=== PATIENT | female | born 1950 | race Caucasian/White ===

== ENCOUNTER → 2017-10-30 | Outpatient (CLI) | payer MEDICARE | END | disposition home or self-care (01) | LOC: CVU 14:56 | PROVIDERS: ATTEND Internal Medicine Cardiovascular Disease | DX: I08.1 Rheumatic disorders of both mitral and tricuspid valves (principal); I48.92 Unspecified atrial flutter; I10 Essential (primary) hypertension | CPT/HCPCS: 93306 ==

== ENCOUNTER → 2017-11-24 | Outpatient (CLI) | payer MEDICARE | END | disposition home or self-care (01) | LOC: CFH 10:07 | PROVIDERS: ATTEND Internal Medicine | DX: Z13.820 Encounter for screening for osteoporosis (principal); M85.89 Other specified disorders of bone density and structure, multiple sites | CPT/HCPCS: 77080 ==

== ENCOUNTER 2019-03-27 09:14 | Outpatient (CLI) | payer MEDICARE ==
[2019-03-27] MEDS ORDERED: OMEP-110 PO (09:44)
[2019-03-27] MEDS ORDERED: METO50TA82 PO (09:44)
[2019-03-27] MEDS ORDERED: MAGN400T9 PO (09:44)
[2019-03-27] MEDS ORDERED: CHOL200074 PO (09:44)
[2019-03-27 10:26] LABS: BASOPHILS # (AUTO) 0.03 x10^3/uL (0-0.1); BASOPHILS % (AUTO) 1 % (0-1); EOSINOPHILS # (AUTO) 0.11 x10^3/uL (0-0.4); EOSINOPHILS % (AUTO) 2 % (1-7); LYMPHOCYTES # (AUTO) 1.32 x10^3/uL (1-3.4); LYMPHOCYTES % (AUTO) 24 % (22-44); MD NO; MEAN CORPUSCULAR HEMOGLOBIN 32.2 pg (27.0-34.8); MEAN CORPUSCULAR HGB CONC 33.6 g/dL (32.4-35.8); MEAN PLATELET VOLUME 7.5 fL (7.4-10.4); MONOCYTES # (AUTO) 0.48 x10^3/uL (0.2-0.8); MONOCYTES % (AUTO) 9 % (2-9); NEUTROPHILS # (AUTO) 3.56 x10^3/uL (1.8-6.8); NEUTROPHILS % (AUTO) 65 % (42-75); PLATELET COUNT 256 x10^3/uL (130-400); RED BLOOD COUNT 4.42 x10^6/uL (3.82-5.3); RED CELL DISTRIBUTION WIDTH 12.8 % (9.6-15.2)
[2019-03-27 10:27] LABS: INTERNATIONAL NORMALIZED RATIO 0.96 (0.93-1.1); PROTHROMBIN TIME 10.1 Seconds (9.6-11.5)
[2019-03-27 10:29] LABS: ALANINE AMINOTRANSFERASE 23 U/L (12-78); ALBUMIN 3.9 g/dL (3.4-5.0); ANION GAP 6 mmol/L (5-15); CALCIUM 8.6 mg/dL (8.5-10.1); CHLORIDE 109 mmol/L (98-107); CREATININE 0.84 mg/dL (0.55-1.02)
[2019-03-27 10:31] LABS: ALKALINE PHOSPHATASE 106 U/L (45-117); BILIRUBIN,TOTAL 0.4 mg/dL (0.2-1.0); TOTAL PROTEIN 7.5 g/dL (6.4-8.2)
[2019-03-27 13:51] LABS: HEMOGLOBIN A1C 5.4 % (4.2-6.3)
== END 2019-03-27 23:59 | disposition home or self-care (01) ==
LOC: STAR 09:14
PROVIDERS: ATTEND Orthopaedic Surgery
DX: M16.12 Unilateral primary osteoarthritis, left hip (principal); M25.552 Pain in left hip; Z79.899 Other long term (current) drug therapy
CPT/HCPCS: 36415; 80053; 83036; 85025; 85610; 85730; 87081; 93005

== ENCOUNTER 2019-04-10 06:47 | Inpatient (IN) | payer MEDICARE, OTHER ==
[~2019-04-10] VITALS: Ht 160 cm; Wt 71.8 kg
[~2019-04-10 06:47] MED LIST: CHOL200074 PO; EPINEPHRINE 1 MG/ML, 1ML ONE; KETOROLAC 60 MG/2 ML ONE; MAGN400T9 PO; METO50TA82 PO; OMEP-110 PO; ROPIvacaine/PF 0.5%, 30 ML ONE; SODIUM CHLORIDE 0.9% 50 ML ONE; TRANEXAMIC ACID 100 MG/ML, 10ML ONE; VANCOMYCIN 1,000 MG ONE
[2019-04-10] MEDS ORDERED: LACTATED RINGERS 1,000 ML IV SCH (07:15)
[2019-04-10] MEDS ORDERED: LIDOCAINE-MPF 1%, 2ML INFIL ONE (07:30)
[2019-04-10] MEDS ORDERED: ACETAMINOPHEN 500 MG TABLET PO ONE (07:30)
[2019-04-10] MEDS ORDERED: GABAPENTIN 300 MG CAPSULE PO ONE (07:30)
[2019-04-10] MEDS ORDERED: FENTANYL PF 250 MCG/5ML ONE (07:45)
[2019-04-10] MEDS ORDERED: MIDAZOLAM 1 MG/ML, 2ML ONE (07:45)
[2019-04-10] MEDS ORDERED: NS + 20MEQ KCL 1,000 ML IV SCH (08:06)
[2019-04-10] MEDS ORDERED: SCOPOLAMINE PATCH, 1.5MG PATCH.TD72 TD ONE ×2 (08:07→08:30)
[2019-04-10] MEDS ORDERED: DIPHENHYDRAMINE 25 MG CAPSULE PO PRN (08:30)
[2019-04-10] MEDS ORDERED: ZOLPIDEM 5MG TABLET PO PRN (08:30)
[2019-04-10] MEDS ORDERED: OXYcodone IR 5MG TABLET PO PRN (08:30)
[2019-04-10] MEDS ORDERED: MAGNESIUM HYDROXIDE 8%, 30ML UDC PO PRN (08:30)
[2019-04-10] MEDS ORDERED: HYDROcodone/APAP 5/325 TABLET PO PRN (08:30)
[2019-04-10] MEDS ORDERED: ONDANSETRON 2MG/ML, 2ML IV PRN (08:30)
[2019-04-10] MEDS ORDERED: ONDANSETRON 4 MG TABLET PO PRN (08:30)
[2019-04-10] MEDS ORDERED: SENNA/DOCUSATE TABLET PO PRN (08:30)
[2019-04-10] MEDS ORDERED: BISACODYL 10 MG SUPP PR PRN (08:30)
[2019-04-10] MEDS ORDERED: PROPOFOL 50 ML ONE (08:48)
[2019-04-10] MEDS ORDERED: PROPOFOL 10 MG/ML, 20ML ONE (08:56)
[2019-04-10] MEDS ORDERED: ONDANSETRON 2MG/ML, 2ML ONE (08:56)
[2019-04-10] MEDS ORDERED: NEOSTIGMINE 1 MG/ML, 10ML ONE (08:56)
[2019-04-10] MEDS ORDERED: LIDOCAINE GEL 2%, 5ML ONE (08:56)
[2019-04-10] MEDS ORDERED: ROCURONIUM 10MG/ML,5ML ONE (08:56)
[2019-04-10] MEDS ORDERED: GLYCOPYRROLATE 0.2MG/1ML, 5ML ONE (08:56)
[2019-04-10] MEDS ORDERED: SUCCINYLCHOLINE 20 MG/ML, 10ML ONE (08:56)
[2019-04-10] MEDS ORDERED: DEXAMETHASONE 4 MG/ML, 1ML ONE (08:56)
[2019-04-10] MEDS ORDERED: CEFAZOLIN 1,000 MG ONE (08:56)
[2019-04-10] MEDS ORDERED: LIDOCAINE-MPF 2% ,5ML ONE (08:58)
[2019-04-10] MEDS ORDERED: OMEPRAZOLE 20 MG CAPSULE.DR PO SCH (09:00)
[2019-04-10] MEDS ORDERED: DOCUSATE 100 MG CAPSULE PO SCH (09:00)
[2019-04-10] MEDS: KETOROLAC 30 MG/1 ML IM SCH ×2 (09:00→16:06)
[2019-04-10] MEDS ORDERED: METOPROLOL TARTRATE 50 MG TABLET PO SCH ×2 (09:00→21:00)
[2019-04-10] MEDS ORDERED: OXYcodone 5 MG/5 ML ORAL.SOL UDC PO PRN (09:30)
[2019-04-10] MEDS ORDERED: hydrALAzine 20 MG/ML, 1ML IV PRN (09:30)
[2019-04-10] MEDS ORDERED: METOPROLOL 1 MG/ML, 5ML IV PRN (09:30)
[2019-04-10] MEDS ORDERED: PROMETHAZINE 25 MG/ML, 1ML IV PRN (09:30)
[2019-04-10] MEDS ORDERED: MIDAZOLAM 1 MG/ML, 2ML IV PRN (09:30)
[2019-04-10] MEDS ORDERED: ALBUTEROL/IPRATROPIUM 2.5MG/0.5MG, 3 ML NPPB PRN (09:30)
[2019-04-10] MEDS ORDERED: MEPERIDINE/PF 25MG/ML,1ML IVPush PRN (09:30)
[2019-04-10] MEDS ORDERED: FENTANYL PF 100 MCG/2ML ONE (09:45)
[2019-04-10] MEDS: FENTANYL PF 100 MCG/2ML IV PRN ×2 (09:45→09:55)
[2019-04-10] MEDS ORDERED: OXYcodone 5 MG/5 ML ORAL.SOL UDC ONE (09:45)
[2019-04-10] MEDS ORDERED: HYDROmorphone 1 MG/ML, 1ML VIAL ONE (09:58)
[2019-04-10] MEDS: HYDROmorphone 2 MG/ML, 1ML IVPush PRN ×3 (10:00→10:30)
[2019-04-10] MEDS ORDERED: DIAZEPAM 5 MG/ML, 2ML ONE (10:32)
[2019-04-10] MEDS ORDERED: DIAZEPAM 5 MG/ML, 2ML IVPush PRN (11:00)
[2019-04-10 12:13] VITALS: BP 122/72
[2019-04-10] MEDS ORDERED: CEFAZOLIN PMX 2GM/50ML 50 ML IVPB SCH (15:30)
[2019-04-10] MEDS ORDERED: MELO7.5T31 PO (17:53)
[2019-04-10] MEDS ORDERED: TRAM50TA2 PO (17:55)
[2019-04-10] MEDS ORDERED: OXYC5TAB2 PO (17:56)
[2019-04-10] MEDS ORDERED: ASPIRIN 81 MG TABLET EC PO SCH (18:00)
[2019-04-10 18:01] VITALS: BP 126/71
[2019-04-11] MEDS ORDERED: DEXAMETHASONE 4 MG/ML, 1ML IVPush SCH (06:00)
[2019-04-11] MEDS ORDERED: MAGNESIUM OXIDE 400 MG TABLET PO SCH (09:00)
== END 2019-04-10 18:30 | disposition home or self-care (01) | DRG 470 ==
LOC: ORIP 06:47 → 4NE 11:19
PROVIDERS: ADMIT Orthopaedic Surgery; ATTEND Orthopaedic Surgery
PROC: 0SRB06A Replacement of Left Hip Joint with Oxidized Zirconium on Polyethylene Synthetic Substitute, Uncemented, Open Approach (ICD-10-PCS; principal; 2019-04-10 08:45)
DX: M16.12 Unilateral primary osteoarthritis, left hip (principal); I10 Essential (primary) hypertension; K21.9 Gastro-esophageal reflux disease without esophagitis
CPT/HCPCS: 72170; 76000; C1713; G0378; J0171; J0690; J1100; J1170; J1885; J2250; J2405; J2704; J2710; J2795; J3010; J3360; J3370; J3480; C1776; J0330; J7120